=== PATIENT | female | born 1945 | race Caucasian/White ===

== ENCOUNTER 2018-07-31 16:22 | Emergency (ER) | payer MEDICARE ==
[~2018-07-31] VITALS: Ht 213.4 cm; Wt 77.1 kg
[2018-07-31] MEDS ORDERED: GABAPENTIN300 MG PO (16:55)
[2018-07-31 17:21] VITALS: BP 159/70
== END 2018-07-31 17:29 | disposition home or self-care (01) ==
LOC: ER 16:22
DX: M79.2 Neuralgia and neuritis, unspecified (principal); B00.9 Herpesviral infection, unspecified; Z85.3 Personal history of malignant neoplasm of breast
CPT/HCPCS: 99282

== ENCOUNTER 2019-07-10 17:49 | Observation (INO) | payer MEDICARE ==
[~2019-07-10] VITALS: Ht 167.6 cm; Wt 83.0 kg
[~2019-07-10 17:49] MED LIST: GABAPENTIN300 MG PO
--- OUTSIDE RECORDS SUMMARY | 2019-07-10 17:51 | XMS REPORT ---
[facility] Address Unknown Phone Unavailable Care Team Providers Care Beef Grader Name Role Phone NO, PCP PP Unavailable Payers Payer Name Policy Type Policy Number Effective Date Expiration Date [employer] Medicare Advantage [id number] Problems This patient has no known problems. Allergies, Adverse Reactions, Alerts Allergy Name Allergy Type Status Severity Reaction(s) Onset Date Inactive Date Treating Clinician Comments Codeine Propensity to adverse reactions Active Unknown 2018-07-31 00:00:00 Tramadol Propensity to adverse reactions Active Unknown 2018-07-31 00:00:00 PENICILLIN Allergy to Substance Active Severe 2018-07-31 00:00:00 Medications Ordered Medication Name Filled Medication Name Start Date Stop Date Current Medication? 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
[2019-07-10] MEDS ORDERED: ASPIRIN 81 MG CHEW TAB PO ONE (18:00)
[2019-07-10 18:30] LABS: BASOPHILS # (AUTO) 0.1 (0.0-0.1); EOSINOPHILS # (AUTO) 0.1 (0.0-0.4); EOSINOPHILS % 2.1 % (0.0-6.0); HEMATOCRIT 40.1 % (34.2-44.1); HEMOGLOBIN 13.3 g/dL (12.0-16.0); LYMPHOCYTES # (AUTO) 1.7 (1.0-3.2); LYMPHOCYTES % 27.2 % (18.0-39.1); MEAN CORPUSCULAR HEMOGLOBIN 27.8 pg (28-32); MEAN CORPUSCULAR HGB CONC 33.2 g/dL (31-35); MEAN CORPUSCULAR VOLUME 83.7 fL (81-99); MONOCYTES # (AUTO) 0.6 (0.2-0.8); MONOCYTES % 10.3 % (4.4-11.3); NEUTROPHILS # (AUTO) 3.7 (2.1-6.9); NEUTROPHILS % 58.9 % (38.7-80.0); PLATELET COUNT 259 x10e3/uL (140-360); RED BLOOD COUNT 4.79 x10e6/uL (3.6-5.1); RED CELL DISTRIBUTION WIDTH 14.4 % (11.7-14.4)
[2019-07-10 18:32] LABS: COLOR,URINE YELLOW (YELLOW)
[2019-07-10 18:33] LABS: BILIRUBIN,URINE NEGATIVE (NEGATIVE); CLARITY,URINE SL CLOUDY (CLEAR); KETONES,URINE NEGATIVE (NEGATIVE); LEUKOCYTE ESTERASE ,URINE TRACE (NEGATIVE); NITRITE,URINE NEGATIVE (NEGATIVE); PROTEIN,URINE DIPSTICK NEGATIVE (NEGATIVE); URINE UROBILINOGEN 0.2 mg/dL (0.2 - 1)
[2019-07-10 18:36] LABS: INR 0.88; PROTHROMBIN TIME 12.5 seconds (11.9-14.5)
[2019-07-10 18:47] LABS: ALANINE AMINOTRANSFERASE 25 IU/L (0-55); ALBUMIN 4.1 g/dL (3.5-5.0); ALBUMIN/GLOBULIN RATIO 1.1 (0.8-2.0); ALKALINE PHOSPHATASE 62 IU/L (40-150); ANION GAP 12.6 mmol/L (8-16); BACTERIA,URINE RARE /HPF; BLOOD UREA NITROGEN 12 mg/dL (7-26); BUN/CREATININE RATIO 15 (6-25); CALCIUM 9.3 mg/dL (8.4-10.2); CARBON DIOXIDE 26 mmol/L (22-29); CHLORIDE 102 mmol/L (98-107); CREATINE KINASE 70 IU/L (29-168); CREATININE, SERUM 0.79 mg/dL (0.57-1.11); EPITHELIAL CELLS,URINE RARE /LPF; EST GLOMERULAR FILTRATION RATE > 60 ML/MIN (60-); GLUCOSE 166 mg/dL (74-118); MAGNESIUM 1.9 MG/DL (1.3-2.1); POTASSIUM 3.6 mmol/L (3.5-5.1); RENAL EPITHELIAL CELLS,URINE FEW; SODIUM 137 mmol/L (136-145)
[2019-07-10] MEDS ORDERED: ONDANSETRON HCL INJ 2MG/ML 2ML 2 MG/ML VIAL IV PRN (19:00)
[2019-07-10 19:06] LABS: THYROID STIMULATING HORMONE 2.819 uIU/mL (0.350-4.940)
--- NOTE | 2019-07-10 19:07 | Diagnostic Imaging Report ---
EXAMINATION: CHEST SINGLE (PORTABLE) INDICATION: ^palpitations ^[id number] ^[id number] COMPARISON: None. FINDINGS: AP view TUBES and LINES: None. LUNGS: Lungs are well inflated. There is no evidence of pneumonia or pulmonary edema. PLEURA: No pleural effusion or pneumothorax. HEART AND MEDIASTINUM: The cardiomediastinal silhouette is unremarkable. BONES AND SOFT TISSUES: No acute osseous lesion. Unchanged surgical clips projecting over right axillary and right infrahilar regions. UPPER ABDOMEN: No free air under the diaphragm. IMPRESSION: No acute thoracic abnormality. Signed by: Dr. Radu Hutton MD on 07/10/2019 7:03 PM
[2019-07-10 20:47] VITALS: BP 131/74
[2019-07-10 20:57] VITALS: BP 131/74
[2019-07-10 21:30] VITALS: BP 131/74
[2019-07-10] MEDS: METOPROLOL TARTRATE 25 MG TAB PO SCH (21:56)
[2019-07-10] MEDS ORDERED: HYDROCHLOROTHIA25 MG (22:59)
[2019-07-10] MEDS ORDERED: [UNRECOGNIZED DRUG - OTHER] PO (22:59)
[2019-07-10] MEDS ORDERED: ACETAMINOPHEN325 M1 PO (22:59)
[2019-07-10] MEDS ORDERED: METOPROLOL SUCC25 MG PO (22:59)
[2019-07-10] MEDS ORDERED: FLECAINIDE ACE100 MG PO (22:59)
[2019-07-10] MEDS ORDERED: LOSARTAN POTASS25 MG PO (22:59)
[2019-07-10] MEDS ORDERED: NAPROXEN250 MG PO (22:59)
[2019-07-10] MEDS ORDERED: COENZYME Q-1050 MG PO (22:59)
[2019-07-10] MEDS ORDERED: VITAMIN D3250 MC1 PO (22:59)
[2019-07-10] MEDS ORDERED: AMLODIPINE BESYL5 MG PO (22:59)
[2019-07-11 01:11] LABS: CREATINE KINASE MB 0.8 ng/mL (0-5.0)
[2019-07-11 05:40] LABS: BASOPHILS # (AUTO) 0.1 (0.0-0.1); BASOPHILS % 0.9 % (0.0-1.0); EOSINOPHILS # (AUTO) 0.2 (0.0-0.4); EOSINOPHILS % 2.8 % (0.0-6.0); HEMATOCRIT 38.4 % (34.2-44.1); HEMOGLOBIN 12.6 g/dL (12.0-16.0); LYMPHOCYTES # (AUTO) 2.1 (1.0-3.2); LYMPHOCYTES % 33.1 % (18.0-39.1); MEAN CORPUSCULAR HEMOGLOBIN 27.5 pg (28-32); MEAN CORPUSCULAR HGB CONC 32.8 g/dL (31-35); MEAN CORPUSCULAR VOLUME 83.8 fL (81-99); MONOCYTES # (AUTO) 0.8 (0.2-0.8); MONOCYTES % 11.8 % (4.4-11.3); NEUTROPHILS # (AUTO) 3.3 (2.1-6.9); NEUTROPHILS % 51.1 % (38.7-80.0); PLATELET COUNT 285 x10e3/uL (140-360); RED BLOOD COUNT 4.58 x10e6/uL (3.6-5.1); RED CELL DISTRIBUTION WIDTH 14.5 % (11.7-14.4)
[2019-07-11 06:09] LABS: CREATINE KINASE 56 IU/L (29-168)
[2019-07-11 06:41] LABS: ANION GAP 9.8 mmol/L (8-16); BLOOD UREA NITROGEN 10 mg/dL (7-26); BUN/CREATININE RATIO 14 (6-25); CALCIUM 9.7 mg/dL (8.4-10.2); CARBON DIOXIDE 28 mmol/L (22-29); CHLORIDE 104 mmol/L (98-107); CHOL/HDL RATIO 3.8 (3.0-3.6); CHOLESTEROL 200 MD/DL (0-199); EST GLOMERULAR FILTRATION RATE > 60 ML/MIN (60-); GLUCOSE 101 mg/dL (74-118); HDL CHOLESTEROL 53 MG/DL (40-60); LDL CHOLESTEROL 128 MG/DL (60-130); POTASSIUM 3.8 mmol/L (3.5-5.1); SODIUM 138 mmol/L (136-145); TRIGLYCERIDES 93 MG/DL (0-149)
[2019-07-11 08:10] VITALS: BP 138/63
[2019-07-11] MEDS: METOPROLOL TARTRATE 25 MG TAB PO SCH (08:15)
[2019-07-11 08:18] VITALS: BP 138/63
[2019-07-11] MEDS: ASPIRIN 81 MG ENTERIC COATED PO SCH ×2 (08:21→08:38)
[2019-07-11 11:58] VITALS: BP 145/65
--- NOTE | 2019-07-11 12:47 | Discharge Summary ---
PRIMARY CARE DOCTOR: Dr. Do Antunez. FINAL DIAGNOSIS: Paroxysmal atrial fibrillation with rapid ventricular response, currently in sinus. SECONDARY DIAGNOSIS: 1. Hypertension. 2. Breast cancer. CONSULTANTS: None. PROCEDURES/STUDIES PERFORMED: None. HISTORY: Per H and P. HOSPITAL COURSE: The patient was monitored overnight. She is back in sinus. Long conversation with the patient, previously failed Xarelto due to excessive bleeding. The patient will follow up with her stucco laborer to see if Eliquis could be an option for now. The patient understands at least she should be on aspirin for stroke prophylaxis. 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 We will also increase her metoprolol for better AFib control. Her TSH is normal. CONDITION ON DISCHARGE: Improved. DISCHARGE MEDICATIONS: Please see medication reconciliation form. MD ZAHRA Andre/CAR /[id number] cc: [facility]
[2019-07-11] MEDS ORDERED: ONDANSETRON HCL 4 MG ORAL DISINTEGRATING TAB PO PRN (13:30)
== END 2019-07-11 14:28 | disposition home or self-care (01) ==
LOC: ER 17:49 → ERHOLD 19:20 → MED/SURG 20:40
PROVIDERS: ADMIT Internal Medicine; ATTEND Internal Medicine
DX: I48.0 Paroxysmal atrial fibrillation (principal); R00.2 Palpitations; I10 Essential (primary) hypertension; Z85.3 Personal history of malignant neoplasm of breast; Z90.11 Acquired absence of right breast and nipple; Z88.5 Allergy status to narcotic agent; Z88.0 Allergy status to penicillin; Z88.8 Allergy status to other drugs, medicaments and biological substances
CPT/HCPCS: 36415; 71045; 80048; 80053; 80061; 81001; 82550; 82553; 83735; 83880; 84443; 84484; 85025; 85610; 85730; 87086; 93005; 99284; G0378

== ENCOUNTER 2019-12-09 15:53 | Emergency (ER) | payer MEDICARE ==
[~2019-12-09] VITALS: Ht 167.6 cm; Wt 83.0 kg
[~2019-12-09 15:53] MED LIST changes: +ACETAMINOPHEN325 M1 PO; +AMLODIPINE BESYL5 MG PO; +COENZYME Q-1050 MG PO; +FLECAINIDE ACE100 MG PO; +HYDROCHLOROTHIA25 MG; +LOSARTAN POTASS25 MG PO; +METOPROLOL SUCC25 MG PO; +NAPROXEN250 MG PO; +VITAMIN D3250 MC1 PO; +[UNRECOGNIZED DRUG - OTHER] PO
[2019-12-09] MEDS ORDERED: SODIUM CHLORIDE 0.9% 1000ML 1,000 ML IV STA (16:22)
[2019-12-09] MEDS ORDERED: CLINDAMYCIN PHOS 900MG/ 50ML 50 ML IV ONE ×2 (16:30→18:32)
[2019-12-09] MEDS ORDERED: CEFTRIAXONE SOD 1 GM/NS 50 ML 50 ML IV ONE (16:30)
[2019-12-09 16:54] LABS: BASOPHILS # (AUTO) 0.1 (0.0-0.1); EOSINOPHILS # (AUTO) 0.1 (0.0-0.4); EOSINOPHILS % 1.3 % (0.0-6.0); HEMATOCRIT 39.3 % (34.2-44.1); HEMOGLOBIN 12.5 g/dL (12.0-16.0); LYMPHOCYTES % 23.8 % (18.0-39.1); MEAN CORPUSCULAR HEMOGLOBIN 26.9 pg (28-32); MEAN CORPUSCULAR HGB CONC 31.8 g/dL (31-35); MEAN CORPUSCULAR VOLUME 84.7 fL (81-99); MONOCYTES # (AUTO) 0.9 (0.2-0.8); MONOCYTES % 10.4 % (4.4-11.3); NEUTROPHILS # (AUTO) 5.2 (2.1-6.9); PLATELET COUNT 292 x10e3/uL (140-360); RED BLOOD COUNT 4.64 x10e6/uL (3.6-5.1); RED CELL DISTRIBUTION WIDTH 14.8 % (11.7-14.4)
[2019-12-09 16:59] LABS: INR 0.9; PARTIAL THROMBOPLASTIN TIME 25.9 seconds (23.8-35.5); PROTHROMBIN TIME 12.6 seconds (11.9-14.5)
[2019-12-09 17:08] LABS: ALANINE AMINOTRANSFERASE 20 IU/L (0-55); ALBUMIN 4.5 g/dL (3.5-5.0); ALBUMIN/GLOBULIN RATIO 1.4 (0.8-2.0); ALKALINE PHOSPHATASE 60 IU/L (40-150); ANION GAP 14.8 mmol/L (8-16); BLOOD UREA NITROGEN 16 mg/dL (7-26); BUN/CREATININE RATIO 22 (6-25); CALCIUM 9.3 mg/dL (8.4-10.2); CARBON DIOXIDE 25 mmol/L (22-29); CHLORIDE 100 mmol/L (98-107); CREATINE KINASE 79 IU/L (29-168); CREATININE, SERUM 0.74 mg/dL (0.57-1.11); EST GLOMERULAR FILTRATION RATE > 60 ML/MIN (60-); GLUCOSE 99 mg/dL (74-118); POTASSIUM 3.8 mmol/L (3.5-5.1); SODIUM 136 mmol/L (136-145)
--- NOTE | 2019-12-09 18:02 | Diagnostic Imaging Report ---
EXAMINATION: CHEST SINGLE (PORTABLE) INDICATION: ^FEVER, RIGHT ARM CELLULITIS ^[id number] ^1720 COMPARISON: Chest radiograph 07/10/2019 FINDINGS: TUBES and LINES: None. LUNGS: Normal lung volumes. No focal opacity or consolidation. PLEURA: No pleural effusion or pneumothorax. HEART AND MEDIASTINUM: The cardiomediastinal silhouette is unremarkable. BONES AND SOFT TISSUES: No acute osseous lesion. Surgical clips in the right axilla. UPPER ABDOMEN: No free air under the diaphragm. IMPRESSION: No acute thoracic radiographic abnormality. Signed by: Dr. Donny Gibbons M.D. on 12/09/2019 5:59 PM
--- NOTE | 2019-12-09 18:57 | Emergency Department Note ---
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 Historian: Patient Arrival Mode: Car Seafood Harvester Required: No Onset (how long ago): day(s) (YESTERDAY) Location: RIGHT ARM Quality: PAIN, REDNESS, WARMTH Radiation: Reports non-radiation Severity: moderate Onset quality: gradual Timing of current episode: constant Progression: worsening Chronicity: new Context: Denies recent illness Relieving factors: none Exacerbating factors: none Associated symptoms: Reports denies other symptoms Treatments prior to arrival: none Past Medical/Family History Physician Review I have reviewed the patient's past medical and family history. Any updates have been documented here. 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; Social History Smoking Cessation: Never Smoker Counseling Performed: No Alcohol Use: None Any Illegal Drug Use: No TB Exposure/Symptoms: No Physically hurt or threatened: No Family History Family history of heart diseas: No Other Last Tetanus: UP TO DATE Any Pre-Existing Lines (PICC,: No Review of Systems Review of Systems Constitutional: Reports no symptoms EENTM: Reports no symptoms Cardiovascular: Reports no symptoms Respiratory: Reports no symptoms Gastrointestinal: Reports no symptoms Genitourinary: Reports no symptoms Musculoskeletal: Reports no symptoms Integumentary: Reports as per HPI Neurological: Reports no symptoms Psychological: Reports no symptoms Endocrine: Reports no symptoms Hematological/Lymphatic: Reports no symptoms Physical Exam Related Data Allergies: Coded Allergies: Penicillins (Verified Allergy, Severe, SWELLING, 4/20/20) gabapentin (Verified Adverse Reaction, Severe, loopy, 07/10/19) levofloxacin (Verified Adverse Reaction, Severe, insides shivering , 07/10/19) nitrofurantoin (Verified Adverse Reaction, Severe, shivering, 07/10/19) shrimp (Verified Adverse Reaction, Severe, swelling of throat and mouth, 07/10/19) codeine (Verified Adverse Reaction, Unknown, VERTIGO, NAUSEA, VOMITING, 07/10/19) tramadol (Verified Adverse Reaction, Unknown, VERTIGO, NAUSEA VOMITING, 07/10/19) Uncoded Allergies: flu vaccine (Adverse Reaction, Severe, anaphylaxis, 07/10/19) hemihydrate (Adverse Reaction, Severe, shivering, 07/10/19) Triage Vital Signs Vital Signs Date Time Temp Pulse Resp B/P (MAP) Pulse Ox O2 Delivery O2 Flow Rate FiO2 12/09/19 16:03 99.4 73 18 158/76 97 Room Air Vital signs reviewed: Yes Physical Exam CONSTITUTIONAL Constitutional: Present well-developed, Present well-nourished HENT HENT: Present normocephalic, Present atraumatic, Present oropharynx clear/moist, Present nose normal HENT L/R: Present left ext ear normal, Present right ext ear normal EYES Eyes: Reports PERRL, Reports conjunctivae normal NECK Neck: Present ROM normal PULMONARY Pulmonary: Present effort normal, Present breath sounds normal CARDIOVASCULAR Cardiovascular: Present regular rhythm, Present heart sounds normal, Present capillary refill normal, Present normal rate GASTROINTESTINAL Abdominal: Present soft, Present nontender, Present bowel sounds normal GENITOURINARY Genitourinary: Present exam deferred SKIN Skin: Present erythema (RAISED 12X8 CM AREA OF CELLULITIS, ERYTHEMA/INCREASED WARMTH/TENDERNESS RIGHT ARM JUST MEDIAL TO ANTECUBITAL FOSSA) MUSCULOSKELETAL Musculoskeletal: Present ROM normal NEUROLOGICAL Neurological: Present alert, Present oriented x 3, Present no gross motor or sensory deficits PSYCHOLOGICAL Psychological: Present mood/affect normal, Present judgement normal Results Laboratory Result Diagram: 12/09/19 1620 12/09/19 1620 Laboratory Laboratory Tests Test 12/09/19 16:20 White Blood Count 8.18 x10e3/uL (4.8-10.8) Red Blood Count 4.64 x10e6/uL (3.6-5.1) Hemoglobin 12.5 g/dL (12.0-16.0) Hematocrit 39.3 % (34.2-44.1) Mean Corpuscular Volume 84.7 fL (81-99) Mean Corpuscular Hemoglobin 26.9 pg (28-32) Mean Corpuscular Hemoglobin Concent 31.8 g/dL (31-35) Red Cell Distribution Width 14.8 % (11.7-14.4) Platelet Count 292 x10e3/uL (140-360) Neutrophils (%) (Auto) 63.0 % (38.7-80.0) Lymphocytes (%) (Auto) 23.8 % (18.0-39.1) Monocytes (%) (Auto) 10.4 % (4.4-11.3) Eosinophils (%) (Auto) 1.3 % (0.0-6.0) Basophils (%) (Auto) 1.0 % (0.0-1.0) Neutrophils # (Auto) 5.2 (2.1-6.9) Lymphocytes # (Auto) 2.0 (1.0-3.2) Monocytes # (Auto) 0.9 (0.2-0.8) Eosinophils # (Auto) 0.1 (0.0-0.4) Basophils # (Auto) 0.1 (0.0-0.1) Absolute Immature Granulocyte (auto 0.04 x10e3/uL (0-0.1) Prothrombin Time 12.6 seconds (11.9-14.5) Prothromb Time International Ratio 0.90 Activated Partial Thromboplast Time 25.9 seconds (23.8-35.5) Sodium Level 136 mmol/L (136-145) Potassium Level 3.8 mmol/L (3.5-5.1) Chloride Level 100 mmol/L (98-107) Carbon Dioxide Level 25 mmol/L (22-29) Anion Gap 14.8 mmol/L (8-16) Blood Urea Nitrogen 16 mg/dL (7-26) Creatinine 0.74 mg/dL (0.57-1.11) Estimat Glomerular Filtration Rate > 60 ML/MIN (60-) BUN/Creatinine Ratio 22 (6-25) Glucose Level 99 mg/dL (74-118) Calcium Level 9.3 mg/dL (8.4-10.2) Total Bilirubin 0.4 mg/dL (0.2-1.2) Aspartate Amino Transf (AST/SGOT) 24 IU/L (5-34) Alanine Aminotransferase (ALT/SGPT) 20 IU/L (0-55) Alkaline Phosphatase 60 IU/L (40-150) Creatine Kinase 79 IU/L (29-168) Creatine Kinase MB 1.10 ng/mL (0-5.0) Troponin I < 0.001 ng/mL (0-0.300) Total Protein 7.7 g/dL (6.5-8.1) Albumin 4.5 g/dL (3.5-5.0) Globulin 3.2 g/dL (2.3-3.5) Albumin/Globulin Ratio 1.4 (0.8-2.0) Lab results reviewed: Yes Imaging Imaging results reviewed: Yes Impressions DOPPLER US RIGHT ARM - NO DVT Procedures 12 Lead ECG Interpretation ECG Interpretation : ECG: ECG 1 Seafood Harvester: Interpreted by ED physician Date: Dec 09, 2019 Time: 16:27 Rhythm: sinus rhythm Rate: normal BPM: 68 QRS axis: normal ST segments normal: Yes T waves normal: Yes Clinical Impression: normal ECG Assessment & Plan Medical Decision Making MDM CELLULITIS BUT SENT TO R/O DVT - CHECK CBC, CHEM, BLOOD CX'S, DOPPLER U/S - EVAL CELLULITIS, DVT, LEUKOCYTOSIS, RENAL INSUFF Reassessment Reassessment PT DOES NOT WANT ADMISSION, SAYS SHE IS MOVING TO [place] THIS WEEK. WILL DC HOME WITH KEFLEX AND CLINDAMYCIN, F/U PCP WEDNESDAY FOR RECHECK, RTED SX'S WORSEN Assessment & Plan Final Impression: (1) Cellulitis of right arm Depart Disposition: HOME, SELF-CARE Last Vital Signs Date Time Temp Pulse Resp B/P (MAP) Pulse Ox O2 Delivery O2 Flow Rate FiO2 12/09/19 16:03 99.4 73 18 158/76 97 Room Air Home Meds Reported Medications Ubidecarenone (Coenzyme Q-10) 50 Mg Capsule, 100 MG PO DAILY 07/10/19 Cholecalciferol (Vitamin D3) (Vitamin D3) 250 Mcg Capsule, 5000 UNITS PO DAILY 07/10/19 Vitamin A/Vit C/Zinc/Propolis (ZINC LOZENGE-VITAMIN A & C) 15 Mg Lozenge, 1000 MG PO DAILY 07/10/19 Acetaminophen (ACETAMINOPHEN) 325 Mg Tablet, 650 MG PO Q6H PRN for pain, TAB 07/10/19 Hydrochlorothiazide (HYDROCHLOROTHIAZIDE) 25 Mg Tablet, 12.5 MG DAILY, #30 TAB 07/10/19 Flecainide Acetate (FLECAINIDE ACETATE) 100 Mg Tablet, 100 MG PO PRN, #60 TAB 07/10/19 Amlodipine Besylate (AMLODIPINE BESYLATE) 5 Mg Tablet, 2.5 MG PO DAILY, #30 TAB 07/10/19 Naproxen (NAPROXEN) 250 Mg Tablet, 500 MG PO BID, TAB 07/10/19 Losartan Potassium (LOSARTAN POTASSIUM) 25 Mg Tablet, PO DAILY 07/10/19 Metoprolol Succinate (METOPROLOL SUCCINATE) 25 Mg Tab.er.24h, 25 MG PO DAILY 07/10/19 Medications in the ED Sodium Chloride 1,000 ml @ 0 mls/hr Q0M STAT IV Last administered on 12/09/19at 17:40; Admin Dose 1,000 MLS/HR; Start 12/09/19 at 16:22; Stop 12/09/19 at 16:28; Status DC Ceftriaxone Sodium 50 ml @ 100 mls/hr ONCE ONCE IV Last administered on at 17:40; Admin Dose 100 MLS/HR; Start 12/09/19 at 16:30; Stop 12/09/19 at 16:59; Status DC Clindamycin Phosphate 50 ml @ 50 mls/hr NOW ONCE IV Last administered on 12/09/19at 17:40; Admin Dose 50 MLS/HR; Start 12/09/19 at 16:30; Stop 12/09/19 at 17:29; Status DC Clindamycin Phosphate 50 ml @ STK-MED ONCE IV ; Start 12/09/19 at 18:32; Stop 12/09/19 at 18:26; Status DC LARS CONNOLLY MD Dec 09, 2019 18:57
== END 2019-12-09 19:37 | disposition home or self-care (01) ==
LOC: ER 16:20
DX: L03.113 Cellulitis of right upper limb (principal); I10 Essential (primary) hypertension; I48.91 Unspecified atrial fibrillation; Z85.3 Personal history of malignant neoplasm of breast
CPT/HCPCS: 36415; 71045; 80053; 82550; 82553; 84484; 85025; 85610; 85730; 87040; 93005; 93971; 99284; J0696; J7030